=== PATIENT | female | born 1955 | race Asian ===

== ENCOUNTER 2021-08-10 17:43 | Inpatient (IN) | payer OTHER ==
[~2021-08-10] VITALS: Ht 165.1 cm; Wt 55.8 kg
[2021-08-10 17:50] VITALS: BP 175/81
[2021-08-10 18:37] LABS: ABSOLUTE NEUTROPHILS 3.3 thou/uL (1.4-8.2); BASOPHILS 0.4 % (0.0-2.0); EOSINOPHILS 2.2 % (0.0-3.0); HEMATOCRIT 38.6 % (37.0-47.0); HEMOGLOBIN 12.7 gm/dL (12.0-15.0); LYMPHOCYTES 45.3 % (24.0-44.0); MCH 33.6 pg (26.0-34.0); MCHC 32.9 g/dL (28.0-37.0); MCV 102.3 fL (80.0-100.0); MONOCYTES 7.1 % (1.0-8.0); PLATELET COUNT 254 thou/uL (150-400); RBC 3.77 mil/uL (4.20-5.00); RDW 13.2 % (10.5-14.5); WBC 7.3 thou/uL (4.0-11.0)
[2021-08-10 18:45] LABS: CALCIUM 8.9 mg/dL (8.5-10.1); CREATININE 0.8 mg/dL (0.6-1.0); POTASSIUM 3.8 mmol/L (3.5-5.1)
[2021-08-10 18:55] LABS: ALBUMIN 3.7 g/dL (3.4-5.0); TOTAL BILIRUBIN 0.4 mg/dL (0.2-1.0)
[2021-08-10 18:57] LABS: APTT 25.6 Seconds (24.5-32.8); INR 0.94; PROTIME 10.3 Seconds (10.5-12.1)
[2021-08-10 23:06] VITALS: BP 131/63
[2021-08-10 23:36] VITALS: BP 145/67
--- NOTE | 2021-08-11 03:19 | NUR ---
PT ADMITTED TO 201 AT AROUND 2330, PT IS ALERT AND ORIENTED, FROM HOME LIVES ALONE, ADMISSION ASSESSMENT, HX AND EDUCATION COMPLETED AND CHARTED, ON RA, NIH SCORE OF 1, DENIES PAIN, SB ON TELE, NO DISTRESS NOTED, WILL CONTINUE TO MONITOR PER POC
[2021-08-11 04:26] VITALS: BP 146/66
[2021-08-11 07:10] VITALS: BP 160/80
--- NOTE | 2021-08-11 07:20 | EKG ---
[address] [address] ELECTROCARDIOGRAM REPORT Name: TOM YANG Room #: 201-P ADM IN M.R.#: [id number] Admission: 08/10/21 Attend Phys: Moses Vasquez MD Discharge: Date of : 51 Report #: [id number] [facility] ED Test Date: 2021-08-10 Test Time: 17:53:11 Pat Name: TREY SANTOS Department: Room: 201 Gender: F Residential Sales Executive: UNKNOWN : 1955 Requested By: Julian Kitchen Order Number: [id number] MD: Carlos Majano Measurements Intervals [place] Rate: 69 P: 90 [place]: 151 QRS: 78 QRSD: 83 T: 40 QT: 385 QTc: 413 Interpretive Statements Sinus rhythm Right atrial enlargement No previous ECG available for comparison Electronically Signed On 08-11-2021 7:19:47 CDT by Carlos Majano [email or web address] <ELECTRONICALLY SIGNED> By: Carlos Majano MD, [facility] 08/11/21 0719 1753 1753 Carlos Majano MD, FACC /EPI
[2021-08-11 11:10] VITALS: BP 142/75
[2021-08-11 15:10] VITALS: BP 137/83
--- NOTE | 2021-08-11 20:06 | NUR ---
PT IS AXOX4, PLEASANT; VSS, AFEBRILE, SR ON THE MONITOR. PT HAD MRI OF HEAD AND CAROTID DOPPLER COMPLETED THIS AM. DR MARTINEZ CONSULTED, DR RIOJAS CONSULTED. PT AWAITING FOR D/C TODAY. DTR AT THE BEDSIDE. READING FROM CT ANGIOGRAM NOT AVAILABLE FROM RADIOLOGY/CT, NEURO UNABLE TO SIGN OFF ON PT. CT/RADIOLOGY CALLED SEVERAL TIMES TO DETERMINE NEXT STEP IN POC. PT SCORING 0 ON NIH SCALE, AND STATES SHE HAS NO LITTLE TO LEFT SIDED NUMBNESS. POC IS TO CONTINUE TO ASSESS PT VS, NUMBNESS, AND NEURO. PT/OT/ST CONSULTED. LOW FALL PRECAUTIONS IN PLACE. WILL CONTINUE TO CONTACT CT/RADIOLOGY TO ASSIST NEURO IN DETERMINATION OF PT'S LENGTH OF STAY AND POSSIBLE DISCHARGE.
[2021-08-11 20:15] VITALS: BP 123/72
[2021-08-11] MEDS ORDERED: LIPITOR 20 MG T20 M1 PO (21:31)
[2021-08-11] MEDS ORDERED: ASPIRIN EC325 MG PO (21:31)
[2021-08-11 21:39] VITALS: BP 137/83
--- NOTE | 2021-08-11 22:12 | NUR ---
ASSUMED PT CARE AT 1900, AWAKE ALERT AND ORIENTED, DAUGHTER AT BEDSIDE, ASSESSMENTS CHARTED, SR ON TELE, DISCARGE ORDER NOTED, PT EDUCATED ON STROKE SYMPTOMS, RISK FACTORS, DISCHARGE MEDICATIONS AND WHEN TO CALL THE DOCTOR, PT AND DAUGHTER STATED UNDERSTANDING, DISCHARGE PAPERWORK GIVEN, IV TO THE LAC DISCONTINUED, PT DISCHARGED HOME STABLE WITH DAUGHTER AT 2210
[2021-08-12 04:07] LABS: GLYCOHEMOGLOBIN (HGB A1C) 6.1 % (4.8-5.6)
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
== END 2021-08-11 22:10 | disposition home or self-care (01) | DRG 74 ==
LOC: ER 17:43 → EDBD 17:43 → 2N 23:00 → EROBS 23:00 → 2N 23:26
PROVIDERS: Emergency Medicine; Nurse Practitioner Family; Psychiatry & Neurology Neuromuscular Medicine; ADMIT Hospitalist; ATTEND Hospitalist
DX: G51.0 Bell's palsy (principal); R20.0 Anesthesia of skin; J47.9 Bronchiectasis, uncomplicated; Z79.899 Other long term (current) drug therapy; I10 Essential (primary) hypertension; Z82.3 Family history of stroke; Z79.82 Long term (current) use of aspirin; Z20.822 Contact with and (suspected) exposure to COVID-19
CPT/HCPCS: 10081